=== PATIENT | female | born 1950 | race Caucasian/White ===

== ENCOUNTER 2016-07-30 10:34 | Emergency (ER) | payer OTHER ==
[2016-07-30 10:50] VITALS: BP 136/77
--- NOTE | 2016-07-30 11:18 | EDM.PDOC ---
ED HPI GENERAL MEDICAL PROBLEM - General Chief Complaint: Head Injury Stated Complaint: Fall, head injury Time Seen by Provider: 07/30/16 11:00 Source of Information: Reports: Patient, RN Notes Reviewed History Limitations: Reports: No Limitations - History of Present Illness INITIAL COMMENTS - FREE TEXT/NARRATIVE: 66 year old female presents to the ED with cheif complaint of right facial pain , swelling, and headache. She was walking with her when she tripped over a rock and fell. She fell forward with her hands out and hit the right side of her face on the ground. There is a questionable loss of consciousness. The as right beside her when she fell and said if she did lose consciousness, it was very brief. The says it took her quite a while to get up and that she seemed a little confused for a brief period of time. She reports some mild nausea but no vomiting. No weakness, numbness, or tingling in her extremities. No midline neck pain. She denies pain to her hands or wrists. She has a few superficial abrasions to the palms of her hands. She is not on any blood thinners. No chest pain, shortness of breath, or abdominal pain. Right Face Pain Score (Numeric/FACES): 2 - Related Data Allergies Allergy/AdvReac Type Severity Reaction Status Date / Time red dye Allergy Rash Verified 07/30/16 10:50 Home Meds: Home Meds PARoxetine HCl [Paxil] 10 mg PO DAILY 07/30/16 [History] Ranitidine [Zantac] 150 mg PO BID 07/30/16 [History] Zolpidem Tartrate [Ambien] 5 mg PO BEDTIME 07/30/16 [History] Social & Family History - Tobacco Use Smoking Status *Q: Never Smoker Second Hand Smoke Exposure: No - Caffeine Use Caffeine Use: Reports: Coffee - Recreational Drug Use Recreational Drug Use: No ED ROS GENERAL - Review of Systems Review Of Systems: See Below HEENT: Reports: No Symptoms. Denies: Nosebleed, Nose Pain, Vertigo, Vision Change Respiratory: Denies: Shortness of Breath Cardiovascular: Reports: No Symptoms. Denies: Chest Pain GI/Abdominal: Reports: Nausea. Denies: Abdominal Pain, Vomiting Musculoskeletal: Reports: Muscle Pain (general aches). Denies: Neck Pain, Back Pain Skin: Reports: Wound Neurological: Reports: Confusion, Headache. Denies: Dizziness, Numbness, Tingling, Difficulty Walking, Weakness ED EXAM, HEAD INJURY - Physical Exam Exam: See Below Exam Limited By: No Limitations General Appearance: Alert, WD/WN, No Apparent Distress Head: Normocephalic, Facial Ecchymosis, Facial Swelling, Facial Tenderness ( right), Other (superficial abrasion to right eyebrow). No: Raccoon Eyes Nexus Criteria: No: Posterior, Midline Cervical Tenderness, Evidence of Intoxication, Altered Level of Consciousness, Focal Neurological Deficit, Painful Distraction Injuries Eyes: Bilateral Eye: EOMI, PERRL Ears: Normal External Exam, Normal Canal, Hearing Grossly Normal, Normal TMs Nose: Normal Inspection, Normal Mucousa, No Blood Throat/Mouth: Normal Inspection, Normal Gums, Normal Oropharynx, No Airway Compromise Neck: Non-Tender, Full Range of Motion, Normal Alignment, Normal Inspection. No : Paraspinous Muscle Tender, Tender Midline Respiratory: No Respiratory Distress, Lungs Clear, Normal Breath Sounds, No Accessory Muscle Use, Chest Non-Tender Cardiovascular: Normal Peripheral Pulses, Regular Rate, Rhythm, No Murmur GI/Abdominal Exam (Abbreviated): Normal Bowel Sounds, Soft, Non-Tender, No Distention Back Exam: Normal Inspection, Full Range of Motion. No: Vertebral Tenderness Extremities: No Evidence of Injury, Normal Range of Motion, Non-Tender Neurologic: No Motor/Sensory Deficits, Alert, Normal Mood/Affect, Oriented x 3, Other (cerebellar testing intact) Skin: Normal Color, Warm/Dry, Other (superficial abrasions to bilateral palms of hands and right eyebrow) Course - Vital Signs Last Recorded V/S: Last Vital Signs Temp 97.5 F 07/30/16 10:46 Pulse 61 07/30/16 10:46 Resp 18 07/30/16 10:46 BP 136/77 07/30/16 10:46 Pulse Ox 95 07/30/16 10:46 - Re-Assessments/Exams Free Text/Narrative Re-Assessment/Exam: Head CT ordered due to questionable LOC and confusion after the fall. Head and maxillofacial CTs negative for acute findings. Patient and spouse were notified of results. Educated on return precautions. Discharge instructions as documented. Departure - Departure Time of Disposition: 12:21 Disposition: Home, Self-Care 01 Condition: good Clinical Impression: Minor head injury Qualifiers: Encounter type: initial encounter Qualified Code(s): S00.90XA - Unspecified superficial injury of unspecified part of head, initial encounter - Discharge Information Referrals: PCP,Not In Area [Primary Care Provider] - Forms: ED Department Discharge Additional Instructions: Minor Head Injury We have found no evidence to indicate that your head injury was serious. However , new symptoms and unexpected complications can develop hours or even days after the injury. The 24 hours are the most crucial and you should remain with a reliable film sound coordinator at least during this period If any of the following signs develop, call your doctor or come back to the ED: Drowsiness or increasing difficulty in awakening patient Nausea and vomiting Convulsions or fits Bleeding or watery drainage from the nose or ear Severe headaches Weakness or loss of feeling in the arms or legs Worsening or loss of balance Confusion or strange behavior One pupil (black part of eye) much larger than the other: peculiar movement of the eyes, double vision, or other visual disturbances A very slow or very rapid pulse, or unusual breathing pattern If there is swelling at the site of the injury, apply an ice pack, making sure that there is a cloth or towel between the ice pack and the skin. If swelling increases markedly in spite of the ice pack application, call us or come back to the ED. You may eat or drink as usual if you desire. However, you should not drink alcoholic beverages for at least 3 days after your injury. Do not take any sedatives or any pain relieves stronger than Tylenol ( acetaminophen) at least for the first 24 hours. Do not use aspirin containing medicines.
--- NOTE | 2016-07-30 12:14 | CT ---
Head CT Technique: Multiple axial sections through the brain were obtained. Intravenous contrast was not utilized. Comparison: No previous intracranial imaging. Findings: Ventricles along with basal cisterns and sulci over the convexities are within normal limits for the patient's age. No abnormal parenchymal densities are seen. No evidence of intracranial hemorrhage. No midline shift or mass effect is seen. Bone window settings were reviewed which shows no acute calvarial abnormality. Impression: 1. No acute intracranial abnormality is identified on noncontrast head CT study. Diagnostic code #1
--- NOTE | 2016-07-30 12:16 | CT ---
CT facial bones Technique: Multiple axial sections through the facial bones were obtained. Reconstructed coronal and sagittal images were reviewed. Comparison: No previous study. Findings: Mild areas of mucosal thickening are seen within the maxillary sinuses on both sides. Possible small left-sided maxillary retention cyst is noted. Minimal mucosal thickening is seen within the ethmoid sinuses. Other sinuses are clear. No air-fluid levels are seen. Degenerative change partially seen within the cervical spine. Right and left globes are symmetric. No facial bone fracture is appreciated. Impression: 1. Sinus findings felt to be incidental. 2. No facial bone fracture is appreciated. Diagnostic code #2
== END 2016-07-30 12:33 | disposition home or self-care (01) ==
LOC: JD.ED 10:34
DX: S09.93XA Unspecified injury of face, initial encounter (principal); Z79.899 Other long term (current) drug therapy; Z91.041 Radiographic dye allergy status; W01.198A Fall on same level from slipping, tripping and stumbling with subsequent striking against other object, initial encounter
CPT/HCPCS: 70450; 70450-26; 70486; 70486-26; 99283; 99284-25